=== PATIENT | female | born 1965 | race Caucasian/White ===

== ENCOUNTER → 2018-05-18 | Outpatient (CLI) | payer OTHER | END | disposition home or self-care (01) | LOC: CDC 09:21 | DX: Z01.810 Encounter for preprocedural cardiovascular examination (principal) | CPT/HCPCS: 93000 ==

== ENCOUNTER 2018-05-25 08:01 | Day surgery (SDC) | payer OTHER ==
[~2018-05-25] VITALS: Ht 177.8 cm; Wt 73.5 kg
[~2018-05-25 08:01] MED LIST: MULTIPLE VITAM1 EAC1 PO
[2018-05-25 09:05] VITALS: BP 92/43
[2018-05-25 11:15] VITALS: BP 148/61
[2018-05-25 11:57] VITALS: BP 120/80
== END 2018-05-25 12:04 | disposition home or self-care (01) ==
LOC: SDC 08:01
DX: N95.0 Postmenopausal bleeding (principal); N84.0 Polyp of corpus uteri; F17.200 Nicotine dependence, unspecified, uncomplicated
CPT/HCPCS: 88305; J1100; J1885; J2405